=== PATIENT | male | born 1965 | race Caucasian/White ===

== ENCOUNTER 2019-09-18 05:35 | Emergency (ER) | payer OTHER, SELFPAY ==
[2019-09-18] VITALS (7 sets, daily range): BP systolic 119–171; BP diastolic 77–100; PULSE 66–93; RESP 16–22; TEMP 36.6; O2SAT 93–99; BMI 43.0
--- NOTE | 2019-09-18 05:48 | XR_ITS ---
WS: [id number] Portable AP upright chest, 09/18/2019 Clinical Data: cp Comparison: PA and lateral chest, 05/11/2012. Findings: No nodules, masses or effusions are seen. The heart is slightly enlarged. The pulmonary vas cularity is not increased. No pneumonia or pneumothorax is seen. There are monitor leads on the chest wall. XR/XR chest 1V portable [id number] Impression: Cardiomegaly
--- NOTE | 2019-09-18 05:49 | ECG_ITS ---
[facility] Test Date: 2019-09-18 Pat Name: Kranthi Mann Department: Room: Gender: Male Cell Changer: : 1965 Requested By: Fadi Paiz Order Number: [id number] Hamilton MD: Mary Contreras M.D. Measurements Intervals [place] Rate: 85 P: 69 UT: 164 QRS: 1 QRSD: 85 T: 67 QT: 374 QTc: 445 Interpretive Statements SINUS RHYTHM No previous ECG available for comparison Electronically Signed On 09-18-2019 20:30:35 CDT by Mary Contreras M.D. [id number]
--- NOTE | 2019-09-18 05:49 | W.ED.EXTPRO ---
HPI - Extremity Problem General: Chief complaint: Extremity Injury, Upper Stated complaint: left arm pain Source: patient Mode of arrival: ambulatory Limitations: no limitations History of Present Illness: HPI Narrative: 54-year-old male states he is been having left arm pain for the last 3 days. Patient states he went to the chiropractor and had adjustment the pains been getting worse. States pain starts in neck and goes down his arm. He states pain is sharp in nature and rates it a 7 out of 10. Patient states he started having chest pain this morning. Denies any vomiting. He has had some nausea. Patient took aspirin at home. MD Complaint: extremity pain Associated symptoms: Deny chest pain, fever(s) or rash Review of Systems Const: Denies: fever(s), chills, body aches or change in appetite Eyes: Denies: blurry vision or eye discomfort ENMT: Denies: throat pain or dental pain Card: Denies: chest pain Resp: Denies: dyspnea GI: Denies: abdominal pain, nausea, vomiting or diarrhea : Denies: dysuria Musc: Reports: neck pain and extremity pain Skin/Breast: Denies: rash Neuro: Denies: headache(s) Psych: Denies: depression Sudheer/Lymph: Denies: easy bruising All/Imm: Denies: urticaria Physical Exam Const: COMMON NORMALS: no acute distress, patient oriented x3 and healthy appearing HENMT: COMMON NORMALS: normocephalic and atraumatic HEAD & SCALP: normocephalic and atraumatic Eye: COMMON NORMALS: Equal, round and reactive pupils present and EOMs intact bilaterally PUPIL: Yes Equal, round and reactive pupils present Neck/C-Spine: COMMON NORMALS: full ROM and supple Chest: COMMONS NORMALS: normal inspection of the chest and normal palpation of entire chest wall Resp: COMMON NORMALS: normal respiratory effort, No retractions, No use of accessory muscles and clear to auscultation bilaterally AUSCULTATION: clear to auscultation bilaterally Cardio: COMMON NORMALS: regular rate, regular rhythm and No murmurs present (Cardio) RATE: regular rate RHYTHM: regular rhythm GI: COMMON NORMALS: Normal to inspection, nondistended, normoactive bowel sounds present, Soft to palpation, non-tender and no masses PALPATION: Yes Soft to palpation Extremity: COMMON NORMALS: normal to inspection and full ROM NARRATIVE EXTREMITY EXAM: Tender over left neck and left arm. Movement of his arm reproduces all of his pain in his chest and neck. Neuro: COMMON NORMALS: patient oriented x3, moves all extremities and no focal motor deficits Psych: COMMON NORMALS: mental status grossly normal, Normal thought process present and cooperative THOUGHT PROCESS: Normal thought process present Skin: COMMON NORMALS: no rashes or lesions noted and no wounds GENERAL SKIN EXAM: no rashes or lesions noted Course Vital Signs: Vital signs: Vital Signs Temperature 97.8 F 09/18/19 05:38 Pulse Rate 66 09/18/19 09:15 Respiratory Rate 17 09/18/19 09:15 Blood Pressure 136/81 09/18/19 09:15 Pulse Oximetry 96 09/18/19 09:15 MDM - Extremity (Nontraumatic) MDM Narrative: Medical decision making narrative: Kranthi presents here with neck and chest pain. Patient's chest pains atypical likely muscular. Patient's symptoms are radicular in nature. We will place him on Naprosyn and Robaxin. He is to follow-up with his PCP and return if any worsening. Patient CT of his neck is normal and if his symptoms persist he likely needs an MRI. Lab Data: Labs: Lab Results 09/18/19 09/18/19 09/18/19 Range/Units 06:28 06:28 06:28 WBC Cancelled Corrected WBC Cancelled RBC Cancelled Hgb Cancelled Hct Cancelled MCV Cancelled MCH Cancelled MCHC Cancelled RDW Cancelled Plt Count Cancelled MPV Cancelled Gran % Cancelled Neut % (Auto) Cancelled Lymph % (Auto) Cancelled [place] % (Auto) Cancelled Eos % (Auto) Cancelled Baso % (Auto) Cancelled Neut # (Auto) Cancelled Lymph # (Auto) Cancelled [place] # (Auto) Cancelled Eos # (Auto) Cancelled Baso # (Auto) Cancelled Absolute Gran (aut o) Cancelled Nucleated RBC % (a uto) Cancelled Nucleated RBCs # Cancelled Sodium 134 L (136-145) mmol/L Potassium 3.9 (3.5-5.1) mmol/L Chloride 100 (98-107) mmol/L Carbon Dioxide 25 (22-29) mmol/L Anion Gap 12.9 (5-19) BUN 15 (6-20) mg/dL Creatinine 0.8 (0.7-1.2) mg/dL GFR Calculation 100.7 (90-130) mL/min Glucose 296 H (65-115) mg/dL Calculated Osmolal ity 285 (285-295) mOsm/k g Calcium 8.6 (8.5-10.5) mg/dL Total Bilirubin 0.5 (0.15-1.2) mg/dL AST 38 (0-40) U/L ALT 51 H (0-41) U/L Alkaline Phosphata se 100 (40-130) IU/L Troponin T Baselin e 13 (0-15) ng/L Troponin T 120 Min resighini (0-15) ng/L Delta Troponin T (0-10) ABS# Total Protein 6.9 (6.6-8.7) g/dL Albumin 3.9 (3.5-5.2) g/dL Globulin 3.0 (1.3-4.6) g/dL 09/18/19 09/18/19 Range/Units 07:14 08:17 WBC 5.5 Corrected WBC RBC 4.49 Hgb 13.4 Hct 40.5 L MCV 90.2 MCH 29.8 MCHC 33.1 RDW 12.2 Plt Count 159 MPV 10.8 H Gran % Neut % (Auto) 54.5 Lymph % (Auto) 35.6 [place] % (Auto) 7.5 Eos % (Auto) 1.3 Baso % (Auto) 0.9 Neut # (Auto) 2.99 Lymph # (Auto) 2.0 [place] # (Auto) 0.4 Eos # (Auto) 0.1 Baso # (Auto) 0.1 Absolute Gran (aut o) Nucleated RBC % (a uto) 0 Nucleated RBCs # 0.0 Sodium (136-145) mmol/L Potassium (3.5-5.1) mmol/L Chloride (98-107) mmol/L Carbon Dioxide (22-29) mmol/L Anion Gap (5-19) BUN (6-20) mg/dL Creatinine (0.7-1.2) mg/dL GFR Calculation (90-130) mL/min Glucose (65-115) mg/dL Calculated Osmolal ity (285-295) mOsm/k g Calcium (8.5-10.5) mg/dL Total Bilirubin (0.15-1.2) mg/dL AST (0-40) U/L ALT (0-41) U/L Alkaline Phosphata se (40-130) IU/L Troponin T Baselin e (0-15) ng/L Troponin T 120 Min resighini 11.49 (0-15) ng/L Delta Troponin T -1.51 L (0-10) ABS# Total Protein (6.6-8.7) g/dL Albumin (3.5-5.2) g/dL Globulin (1.3-4.6) g/dL Imaging Data^: CXR: Attestation: I personally reviewed and interpreted this imaging study as follows: My impression: no acute abnormality Other CT: Attestation: I personally reviewed and interpreted this imaging study as follows: Radiologist's impression: [address] [address] [address] Scan Report Signed Patient: Kranthi Mann Unit #: [id number] : 1965 Age/Sex: 54 / M ADM Date: 09/18/19 Loc: ER Room/Bed: Attending Dr: Ordering Provider/Ordering MD: Fadi Paiz MD Date of Service: 09/18/19 Procedure(s): CT cervical spin wo con* [id number] Accession Number(s): [id number] Report Number: [id number] PROCEDURE INFORMATION: Exam: CT Cervical Spine Without Contrast Exam date and time: 09/18/2019 5:52 AM Age: 54 years old Clinical indication: Neck pain and other: Lt arm pain TECHNIQUE: Imaging protocol: Computed tomography images of the cervical spine without contrast. Radiation optimization: All CT scans at this facility use at least one of these dose optimization techniques: automated exposure control; mA and/or kV adjustment per patient size (includes targeted exams where dose is matched to clinical indication); or iterative reconstruction. COMPARISON: No relevant prior studies available. RADIATION DOSE METRICS: Total DLP (mGy-cm): 1106.68 FINDINGS: Vertebrae: There is mild reversal of the normal cervical lordosis. This may be positional or due to muscle spasm. There is normal alignment of the cervical spine. No fractures or dislocations identified. Vertebral body heights are well maintained throughout. Discs/Spinal canal/Neural foramina: Intervertebral disc spaces are well maintained throughout. The bony spinal canal is patent. The neural foramina are patent. Soft tissues: No prevertebral soft tissue swelling identified. Lungs: Lung apices are unremarkable as visualized. CT/CT cervical spin wo con* [id number] IMPRESSION: 1. No fractures or dislocations identified involving the cervical spine. EKG Data^: EKG 1: Attestation: I personally reviewed and interpreted this EKG as follows: EKG interpretation date: 09/18/19 EKG interpretation time: 06:09 Interpretation: nsr hr [address] or t wave abnormalities qrs 85 qtc 416 Discharge Plan Discharge Patient Disposition: Home Clinical Impression: Neck pain Condition: Stable Prescriptions: New Robaxin-750 750 mg tablet 750 mg PO Q6H Qty: 30 RF: 0 Naprosyn 500 mg tablet 500 mg PO BID PRN (Reason: pain) Qty: 20 RF: 0 [place] 5-325 mg tablet 1 tab PO Q6H PRN (Reason: pain) Qty: 14 RF: 0 Discharge Orders: Discharge Order (Routine); Ordered 09/18/19 Ordered By: Fadi Paiz Discharge Diet: Advance as tolerated Discharge Activity: Resume usual activity Patient Instructions: Cervical Radiculopathy (ED) Stand Alone Forms: Work/School Release Discharge Date/Time: 09/18/19 09:15 Coding Level of Care Code ED Composition Professor for Chg Fwd Exam Comprehensive
[2019-09-18] MEDS: ondansetron 2 mg/ML SDV 2 mL 4 MG IVP (06:48)
[2019-09-18] MEDS: morphine 4 mg/mL SDV 1 mL IVP (06:49)
[2019-09-18 06:59] LABS: Alanine Aminotransferase 51 U/L (0-41); Albumin Level 3.9 g/dL (3.5-5.2); Alkaline Phosphatase 100 IU/L (40-130); Aspartate Amino Transferase 38 U/L (0-40); Blood Urea Nitrogen 15 mg/dL (6-20); Calcium 8.6 mg/dL (8.5-10.5); Carbon Dioxide 25 mmol/L (22-29); Chloride 100 mmol/L (98-107); Glomerular Filtration Rate 100.7 mL/min (90-130); Glucose 296 mg/dL (65-115); Osmolality Calculated 285 mOsm/kg (285-295); Sodium 134 mmol/L (136-145); Total Bilirubin 0.5 mg/dL (0.15-1.2); Total Protein 6.9 g/dL (6.6-8.7); Troponin(5th) Baseline 13 ng/L (0-15)
[2019-09-18 07:00] LABS: Anion Gap 12.9 (5-19); Potassium 3.9 mmol/L (3.5-5.1)
[2019-09-18 07:16] LABS: Basophils # 0.1 10^3/uL (0.0-0.1); Basophils % 0.9 %; Eosinophils # 0.1 10^3/uL (0.0-0.8); Eosinophils % 1.3 %; Hematocrit 40.5 % (42.0-52.0); Hemoglobin 13.4 g/dL (11.7-16.6); Lymphocytes % 35.6 %; Mean Corpuscular HGB Conc 33.1 g/dL (30.0-36.0); Mean Corpuscular Hemoglobin 29.8 pg (28.0-34.0); Mean Corpuscular Volume 90.2 fL (80-94); Mean Platelet Volume 10.8 fL (7.4-10.4); Monocytes # 0.4 10^3/uL (0.2-0.9); Monocytes % 7.5 %; Neutrophils # 2.99 10^3/uL (1.8-7.7); Neutrophils % 54.5 %; Nucleated Red Blood Cells % 0 %; Platelet Count 159 10^3/cmm (130-400); Red Blood Count 4.49 10^6/uL (4.1-5.3); Red Cell Distribution Width 12.2 % (12.1-15.1); White Blood Count 5.5 10^3/uL (4.0-10.0)
--- NOTE | 2019-09-18 07:49 | ECG_ITS ---
[facility] Test Date: 2019-09-18 Pat Name: Kranthi Mann Department: Room: Gender: Male Continuous Miner: : 1965 Requested By: Fadi Paiz Order Number: [id number] Joy MD: Mary Contreras M.D. Measurements Intervals [place] Rate: 83 P: 66 HI: 161 QRS: -4 QRSD: 85 T: 62 QT: 390 QTc: 459 Interpretive Statements SINUS RHYTHM Compared to ECG 09/18/2019 06:09:52 No significant changes Electronically Signed On 09-18-2019 20:48:40 CDT by Mary Contreras M.D. [id number]
[2019-09-18 08:52] LABS: Troponin 5 2HR 11.49 ng/L (0-15)
[2019-09-18 08:53] LABS: Troponin 5 2HR Delta -1.51 ABS# (0-10)
[2019-09-18] MEDS: ketorolac 30 mg/mL INJ 15 MG IVP (09:10)
== END 2019-09-18 09:15 | disposition home or self-care (01) ==
PROVIDERS: Emergency Provider Emergency Medicine
DX: M54.2 Cervicalgia (principal)
CPT/HCPCS: 12345; 71045; 72125; 80053; 84484; 85025; 93005; 96374; 96375; 99283; J1885; J2270; J2405

== ENCOUNTER 2020-05-03 00:19 | Emergency (ER) | payer OTHER, SELFPAY ==
[2020-05-03 00:33] VITALS: BP 208/104; PULSE 65; RESP 15; TEMP 36.6; O2SAT 95; BMI 43.0
[2020-05-03 00:38] VITALS: BP 208/104; PULSE 68; RESP 18; O2SAT 97
[2020-05-03 01:07] VITALS: BP 173/98; PULSE 67; RESP 18; O2SAT 94
[2020-05-03] MEDS: azithromycin 250 mg Tablet 500 MG PO (01:26)
[2020-05-03] MEDS: dexamethasone 4 mg/mL INJ 8 MG IVP (01:26)
[2020-05-03 01:35] VITALS: BP 173/96; PULSE 66; RESP 17; TEMP 36.6; O2SAT 94
--- NOTE | 2020-05-03 01:51 | ED_ITS ---
HPI - General Adult General: Chief complaint: General Medical Stated complaint: sob/high hr Time Seen by Provider: 05/03/20 00:35 History of Present Illness: HPI narrative: 54-year-old male with a history of hypertension. He presents stating that I have a sinus infection . He has been congested, has some pain behind his nose and his face. He has no fever. Minimal cough. No sputum production. He states I get this every year . They usually give me a shot and a Z-Raymundo, that is what cures me . Onset (ago): day(s) Location: head and face Radiation: non-radiation Pain Consistency: constant Relieving factors: none Exacerbating factors: none Associated symptoms: Reports cough, headache(s) and nausea; Deny chest pain, confusion, dyspnea, fevers/chills or vomiting Treatments prior to arrival: none (decongestant) Review of Systems Const: Denies: fever(s) Card: Denies: chest pain Resp: Reports: non-productive cough (minimal); Denies: dyspnea or productive cough GI: Reports: nausea; Denies: vomiting Neuro: Reports: headache(s); Denies: difficulty walking, dizziness or confusion Physical Exam Const: GENERAL APPEARANCE: well developed ORIENTATION/CONSCIOUSNESS: Yes oriented to person, Yes oriented to place and Yes oriented to time HENMT: COMMON NORMALS: normocephalic, external ears normal and Normal external nose present HEAD & SCALP: normocephalic FACE & SINUS: normal facial exam NOSE: Normal external nose present and No nasal discharge present EXTERNAL EAR: Yes external ears normal THROAT: posterior oropharynx normal; no peritonsillar mass Eye: COMMON NORMALS: Equal, round and reactive pupils present, EOMs intact bilaterally and conjunctivae normal EYELID: eyelids normal CONJUNCTIVA: Yes conjunctivae normal PUPIL: Yes Equal, round and reactive pupils present Neck/C-Spine: COMMON NORMALS: full ROM GENERAL: No tracheal deviation Chest: COMMONS NORMALS: normal inspection of the chest CHEST: No tenderness Resp: COMMON NORMALS: clear to auscultation bilaterally EFFORT & INSPECTION: No tachypneic, No respiratory distress, No retractions, No uses accessory muscles and No tracheal deviation AUSCULTATION: clear to auscultation bilaterally, no rhonchi, no wheezes and lung sounds not diminished Cardio: COMMON NORMALS: regular rate and regular rhythm RATE: regular rate RHYTHM: regular rhythm HEART SOUNDS: no murmurs PERIPHERAL PULSES: radial pulses present GI: INSPECTION: No abdominal distension AUSCULTATION: No Hyperactive bowel sounds present and No Hypoactive bowel sounds present PALPATION: No Guarding due to palpation present (GI) and No Rigid due to palpation PERCUSSION: no dullness to percussion and no tympanic to percussion Neuro: SENSORIUM/ORIENTATION: Yes oriented to person, Yes oriented to place and Yes oriented to time Skin: COMMON NORMALS: no rashes or lesions noted GENERAL SKIN EXAM: no rashes or lesions noted Course Vital Signs: Vital signs: Vital Signs Temperature 97.9 F 05/03/20 01:35 Pulse Rate 66 05/03/20 01:35 Respiratory Rate 17 05/03/20 01:35 Blood Pressure 173/96 05/03/20 01:35 Pulse Oximetry 94 05/03/20 01:35 MDM - General Adult MDM Narrative: Medical decision making narrative: Patient will be treated for sinusitis. He was hypertensive on arrival, but this self resolved. Likely related to his taking decongestant. Was advised not to do this. Discharge Plan Discharge Patient Disposition: Home Clinical Impression: Sinusitis Qualifiers: Sinusitis location: unspecified location Chronicity: acute Recurrence: non- recurrent Qualified Code(s): J01.90 - Acute sinusitis, unspecified Condition: Stable Prescriptions: New azithromycin 250 mg tablet See Rx Instructions .ROUTE .COMPLEX Qty: 6 RF: 0 No Action Robaxin-750 750 mg tablet 750 mg PO Q6H Qty: 30 RF: 0 Naprosyn 500 mg tablet 500 mg PO BID PRN (Reason: pain) Qty: 20 RF: 0 [place] 5-325 mg tablet 1 tab PO Q6H PRN (Reason: pain) Qty: 14 RF: 0 Discharge Orders: Discharge ED (Routine); Ordered 05/03/20 Ordered By: Connor Griffin Discharge Diet: Usual diet Discharge Activity: Increase activity as tolerated Patient Instructions: Sinusitis (ED) Coding Level of Care Code ED [employer] Engineer for Arturo Waddell
== END 2020-05-03 01:35 | disposition home or self-care (01) ==
PROVIDERS: Emergency Provider Emergency Medicine
DX: J01.90 Acute sinusitis, unspecified (principal)
CPT/HCPCS: 96374; 99283; J1100; Q0144

== ENCOUNTER 2021-01-12 20:59 | Emergency (ER) | payer OTHER, SELFPAY ==
--- NOTE | 2021-01-12 21:01 | XRR_ITS ---
PROCEDURE INFORMATION: Exam: XR Chest Exam date and time: 01/12/2021 9:01 PM Age: 55 years old Clinical indication: Cough and fever and shortness of breath; Patient HX: SOB, cough, ; additional info: Covid sym TECHNIQUE: Imaging protocol: XR of the chest. Views: 1 view. Total images: 1 COMPARISON: CR XR chest 1V portable [id number] 09/18/2019 5:52 AM FINDINGS: Lungs: No visible active interstitial or alveolar airspace disease. Pleural spaces: Unremarkable. No pleural effusion. No pneumothorax. Heart/Mediastinum: Cardiac structures and configuration with evidence of mild cardiomegaly. Bones/joints: Mild scoliotic curvature of the spine. Other findings: Obesity. XR/XR chest 1V portable [id number] IMPRESSION: Nonacute.
[2021-01-12 21:11] VITALS: PULSE 119; RESP 18; TEMP 37.1; O2SAT 93; BMI 43.0
[2021-01-12 21:26] VITALS: PULSE 119; RESP 18; TEMP 37.1; O2SAT 93
[2021-01-12 21:47] LABS: SARS Covid-2 Antigen Negative (Negative)
[2021-01-12 22:20] VITALS: BP 115/77; PULSE 104; RESP 22; O2SAT 90
--- NOTE | 2021-01-12 22:38 | ECG_ITS ---
[facility] Test Date: 2021-01-12 Pat Name: Kranthi Mann Department: Room: Gender: Male Test Inspection Engineer: : 1965 Requested By: Fadi Paiz Order Number: [id number] Reading MD: NONI ALONSO Measurements Intervals [place] Rate: 113 P: 69 [place]: 148 QRS: -20 QRSD: 85 T: 38 QT: 323 QTc: 444 Interpretive Statements SINUS TACHYCARDIA WITH FREQUENT SUPRAVENTRICULAR PREMATURE COMPLEXES ABNORMAL RHYTHM ECG Compared to ECG 09/18/2019 07:30:59 Sinus rhythm no longer present Electronically Signed On 01-13-2021 9:59:25 AUTO GARAGE ATTENDANT by NONI ALONSO [email or web address] Capital[facility] at[facility] [email or web address]/store/OM/[id number]
--- NOTE | 2021-01-12 22:39 | ED_ITS ---
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 Associated symptoms: Reports nasal congestion; Deny abdominal pain, chills, chest pain, diarrhea, fever(s), headache(s), nausea or vomiting Review of Systems Const: Denies: fever(s), chills, body aches or change in appetite Eyes: Denies: blurry vision or eye discomfort ENMT: Reports: nasal congestion Card: Denies: chest pain Resp: Reports: dyspnea and non-productive cough GI: Denies: abdominal pain, nausea, vomiting or diarrhea : Denies: dysuria Musc: Denies: neck pain or back pain Skin/Breast: Denies: rash Neuro: Denies: headache(s) Psych: Denies: depression Sudheer/Lymph: Denies: easy bruising All/Imm: Denies: urticaria Physical Exam Const: COMMON NORMALS: no acute distress, patient oriented x3 and healthy appearing HENMT: COMMON NORMALS: normocephalic and atraumatic HEAD & SCALP: normocephalic and atraumatic Eye: COMMON NORMALS: Equal, round and reactive pupils present and EOMs intact bilaterally PUPIL: Yes Equal, round and reactive pupils present Neck/C-Spine: COMMON NORMALS: full ROM and supple Chest: COMMONS NORMALS: normal inspection of the chest and normal palpation of entire chest wall Resp: COMMON NORMALS: normal respiratory effort, No retractions and No use of accessory muscles AUSCULTATION: wheezes Cardio: COMMON NORMALS: regular rate, regular rhythm and No murmurs present (Cardio) RATE: regular rate RHYTHM: regular rhythm GI: COMMON NORMALS: Normal to inspection, nondistended, normoactive bowel sounds present, Soft to palpation, non-tender and no masses PALPATION: Yes Soft to palpation Extremity: COMMON NORMALS: normal to inspection and full ROM Neuro: COMMON NORMALS: patient oriented x3, moves all extremities and no focal motor deficits Psych: COMMON NORMALS: mental status grossly normal, Normal thought process present and cooperative THOUGHT PROCESS: Normal thought process present Skin: COMMON NORMALS: no rashes or lesions noted and no wounds GENERAL SKIN EXAM: no rashes or lesions noted Course Vital Signs: Vital signs: Vital Signs Temperature 98.7 F 01/12/21 21:26 Pulse Rate 118 H 01/13/21 00:25 Respiratory Rate 20 H 01/13/21 00:25 Blood Pressure 107/74 01/13/21 00:25 Pulse Oximetry 91 01/13/21 00:25 MDM - URI/Sore Throat MDM Narrative: Medical decision making narrative: Patient presents here with cough congestion likely bronchitis Covid fluid blood work all normal x-ray shows no pneumonia we will place him on albuterol inhaler steroids and antibiotic he is to follow-up with PCP and return if worsening he understands agrees to plan. Lab Data: Labs: Lab Results 01/12/21 01/12/21 01/12/21 21:17 23:03 23:03 WBC 8.8 10^3/uL 10^3/ uL (4.0-10.0) RBC 5.07 10^6/uL 10^6 /uL (4.1-5.3) Hgb 15.3 g/dL g/dL (11.7-16.6) Hct 45.2 % % (42.0-52.0) MCV 89.2 fl fl (80-94) MCH 30.2 pg pg (28.0-34.0) MCHC 33.8 g/dL g/dL (30.0-36.0) RDW 13.2 % % (12.1-15.1) Plt Count 231 10^3/cmm 10^3 /cmm (130-400) MPV 10.7 fL H fL (7.4-10.4) Neut % (Auto) 53.6 % % Lymph % (Auto) 31.5 % % [place] % (Auto) 12.7 % % Eos % (Auto) 1.5 % % Baso % (Auto) 0.5 % % Neut # (Auto) 4.70 10^3/uL 10^3 /uL (1.8-7.7) Lymph # (Auto) 2.8 10^3/uL 10^3/ uL (0.8-4.8) [place] # (Auto) 1.1 10^3/uL H 10^ 3/uL (0.2-0.9) Eos # (Auto) 0.1 10^3/uL 10^3/ uL (0.0-0.8) Baso # (Auto) 0.0 10^3/uL 10^3/ uL (0.0-0.1) Nucleated RBC % (a uto) 0 % % Nucleated RBCs # 0.0 /100WBC /100W BC D-Dimer Sodium 134 mmol/L L mmol /L (136-145) Potassium 4.7 mmol/L mmol/L (3.5-5.1) Chloride 99 mmol/L mmol/L (98-107) Carbon Dioxide 23 mmol/L mmol/L (22-29) Anion Gap 16.7 (5-19) BUN 14 mg/dL mg/dL (6-20) Creatinine 1.2 mg/dL mg/dL (0.7-1.2) GFR Calculation 62.9 mL/min L mL/ min (90-130) Glucose 149 mg/dL H mg/dL (65-115) Calculated Osmolal ity 281 mOsm/kg L mOs m/kg (285-295) Calcium 8.8 mg/dL mg/dL (8.5-10.5) Total Bilirubin 0.6 mg/dL mg/dL (0.15-1.2) AST 67 U/L H U/L (0-40) ALT 59 U/L H U/L (0-41) Alkaline Phosphata se 85 IU/L IU/L (40-130) Total Protein 7.2 g/dL g/dL (6.6-8.7) Albumin 4.1 g/dL g/dL (3.5-5.2) Globulin 3.1 g/dL g/dL (1.3-4.6) Influenza Type A A g Influenza Type B A g SARS-CoV-2 Ag (Rap id) Negative (Negative) 01/12/21 01/12/21 23:03 23:09 WBC RBC Hgb Hct MCV MCH MCHC RDW Plt Count MPV Neut % (Auto) Lymph % (Auto) [place] % (Auto) Eos % (Auto) Baso % (Auto) Neut # (Auto) Lymph # (Auto) [place] # (Auto) Eos # (Auto) Baso # (Auto) Nucleated RBC % (a uto) Nucleated RBCs # D-Dimer 0.51 ug/mIFEU ug/ mIFEU (0-0.59) Sodium Potassium Chloride Carbon Dioxide Anion Gap BUN Creatinine GFR Calculation Glucose Calculated Osmolal ity Calcium Total Bilirubin AST ALT Alkaline Phosphata se Total Protein Albumin Globulin Influenza Type A A g Negative (Negative) Influenza Type B A g Negative (Negative) SARS-CoV-2 Ag (Rap id) Imaging Data^: CXR: Attestation: I personally reviewed and interpreted this imaging study as follows: Radiologist's impression: [address] [address] XRay Report Signed Patient: Kranthi Mann Unit #: [id number] : 1965 Age/Sex: 55 / M ADM Date: 01/12/21 Loc: ER Room/Bed: Attending Dr: Ordering Provider/Ordering MD: Fadi Paiz MD Date of Service: 01/12/21 Procedure(s): XR chest 1V portable [id number] Accession Number(s): [id number] Report Number: [id number] PROCEDURE INFORMATION: Exam: XR Chest Exam date and time: 01/12/2021 9:01 PM Age: 55 years old Clinical indication: Cough and fever and shortness of breath; Patient HX: SOB, cough, ; additional info: Covid sym TECHNIQUE: Imaging protocol: XR of the chest. Views: 1 view. Total images: 1 COMPARISON: CR XR chest 1V portable [id number] 09/18/2019 5:52 AM FINDINGS: Lungs: No visible active interstitial or alveolar airspace disease. Pleural spaces: Unremarkable. No pleural effusion. No pneumothorax. Heart/Mediastinum: Cardiac structures and configuration with evidence of mild cardiomegaly. Bones/joints: Mild scoliotic curvature of the spine. Other findings: Obesity. XR/XR chest 1V portable [id number] IMPRESSION: Nonacute. Dictated By: Felipe Agosto Signed By: Felipe Agosto Signed Date/Time: 01/12/212233 DD/ 00 EKG Data^: EKG 1: Attestation: I personally reviewed and interpreted this EKG as follows: EKG interpretation date: 01/12/21 EKG interpretation time: 23:06 Interpretation: sinus tach hr [address] or t wave abnormalities qrs 85 qtc 390 Discharge Plan Discharge Patient Disposition: Home Clinical Impression: Bronchitis Condition: Stable Prescriptions: New prednisone 50 mg tablet 50 mg PO DAILY Qty: 5 RF: 0 albuterol sulfate 90 mcg/actuation HFA aerosol inhaler 2 inh INHALATION Q6H PRN (Reason: shortness of breath or wheezing) Qty: 8 RF: 0 doxycycline hyclate 100 mg tablet 100 mg PO BID 7 Days Qty: 14 RF: 0 No Action Robaxin-750 750 mg tablet 750 mg PO Q6H Qty: 30 RF: 0 Naprosyn 500 mg tablet 500 mg PO BID PRN (Reason: pain) Qty: 20 RF: 0 [place] 5-325 mg tablet 1 tab PO Q6H PRN (Reason: pain) Qty: 14 RF: 0 azithromycin 250 mg tablet See Rx Instructions .ROUTE .COMPLEX Qty: 6 RF: 0 Discharge Orders: Discharge ED (Routine); Ordered 01/13/21 Ordered By: Fadi Paiz Discharge Diet: Advance as tolerated Discharge Activity: Resume usual activity Patient Instructions: Acute Bronchitis (ED) Coding Level of Care Code ED [place] [employer] Manager for Chg Fwd Exam Comprehensive
[2021-01-12 22:58] VITALS: PULSE 105; RESP 18; O2SAT 90
[2021-01-12] MEDS: ipratropium-albuterol 3 mL Neb INHALATION (23:01)
[2021-01-12 23:03] VITALS: PULSE 92
[2021-01-12 23:16] LABS: Basophils % 0.5 %; Eosinophils # 0.1 10^3/uL (0.0-0.8); Eosinophils % 1.5 %; Hematocrit 45.2 % (42.0-52.0); Hemoglobin 15.3 g/dL (11.7-16.6); Lymphocytes # 2.8 10^3/uL (0.8-4.8); Lymphocytes % 31.5 %; Mean Corpuscular HGB Conc 33.8 g/dL (30.0-36.0); Mean Corpuscular Hemoglobin 30.2 pg (28.0-34.0); Mean Corpuscular Volume 89.2 fl (80-94); Mean Platelet Volume 10.7 fL (7.4-10.4); Monocytes # 1.1 10^3/uL (0.2-0.9); Monocytes % 12.7 %; Neutrophils % 53.6 %; Nucleated Red Blood Cells % 0 %; Platelet Count 231 10^3/cmm (130-400); Red Blood Count 5.07 10^6/uL (4.1-5.3); Red Cell Distribution Width 13.2 % (12.1-15.1); White Blood Count 8.8 10^3/uL (4.0-10.0)
[2021-01-12] MEDS: sodium chloride 0.9% 1,000 ML 999 ML IV (23:30)
[2021-01-12 23:38] LABS: D Dimer 0.51 ug/mIFEU (0-0.59)
[2021-01-12 23:46] LABS: Alanine Aminotransferase 59 U/L (0-41); Albumin Level 4.1 g/dL (3.5-5.2); Alkaline Phosphatase 85 IU/L (40-130); Blood Urea Nitrogen 14 mg/dL (6-20); Calcium 8.8 mg/dL (8.5-10.5); Carbon Dioxide 23 mmol/L (22-29); Chloride 99 mmol/L (98-107); Globulin 3.1 g/dL (1.3-4.6); Glomerular Filtration Rate 62.9 mL/min (90-130); Glucose 149 mg/dL (65-115); Osmolality Calculated 281 mOsm/kg (285-295); Sodium 134 mmol/L (136-145); Total Bilirubin 0.6 mg/dL (0.15-1.2); Total Protein 7.2 g/dL (6.6-8.7)
[2021-01-13 00:02] LABS: Influenza A by IFA Negative (Negative); Influenza B by IFA Negative (Negative)
[2021-01-13 00:05] LABS: Anion Gap 16.7 (5-19); Aspartate Amino Transferase 67 U/L (0-40); Potassium 4.7 mmol/L (3.5-5.1)
[2021-01-13 00:25] VITALS: BP 107/74; PULSE 118; RESP 20; O2SAT 91
== END 2021-01-13 00:29 | disposition home or self-care (01) ==
PROVIDERS: Emergency Provider Emergency Medicine
DX: J40 Bronchitis, not specified as acute or chronic (principal); Z20.822 Contact with and (suspected) exposure to COVID-19
CPT/HCPCS: 71045; 80053; 85025; 85378; 87426; 87804; 93005; 94640; 96361; 96374; 99284; J2930; J7030; J7611